=== PATIENT | female | born 1980 | race Hispanic/Latino ===

== ENCOUNTER 2017-11-18 22:41 | Day surgery (SDC) | payer SELFPAY ==
[2017-11-18 23:23] VITALS: BMI 22.9
--- NOTE | 2017-11-19 00:16 | PDOC.LDHP ---
Labor and Delivery H&P Chief complaint: contractions HPI: This is a 37 y/o @ 27.6 WGA who presents for contractions. The patient reports that her ctx started about a week ago and she has had runs of them on and off. She reports that they would last for about 3-4 hours and would be 10 minutes apart. She describes that today they have been worse so she decided to come in and get seen. The patient has been orally hydrating. She denies F/C, dysuria, but reports that her urine has been darker in color. She denies vaginal bleeding or discharge and denies loss of fluids. She reports good movement. Current gestational age (weeks): 27 (6) Due date: 02/12/18 Grav: 6 Para: 4 OB History Details: 4 term vaginal deliveries and one 1st trimester SAB. Current complications: other (Advanced maternal age) Abnormal US findings: Yes (per the patient: the baby has an "enlarged heart") Past Medical History: None Current medications: pre-clint vitamins Previous surgical history: appendectomy, cholecystectomy Social history: none - Physical Exam Vital signs reviewed and normal: yes General: NAD Heart: RRR Lungs: CTAB Abdomen: other (suprapubic and lower abdominal tenderness) Extremeties: no edema FHT: category 1, variability present Biola contractions every: 2-3 minutes - OB Labs Blood type: O RH: positive Antibody Screen: negative HIV: negative RPR: negative HEPSAg: negative GBS: unknown Rubella: immune - Assessment 37 y/o @ 27.6 WGA 1. Rule-out labor 2. Advanced maternal age - Plan -: Will observe the patient on L&D -NST -Cervical length, FFN if indeterminate -VP3 -Urinalysis -Orally hydrate Dispo pending results of the tests <Darlin Angulo - Last Filed: 11/19/17 00:13> <Nita Paniagua - Last Filed: 11/19/17 02:15> Allergies/Adverse Reactions: Allergies Allergy/AdvReac Type Severity Reaction Status Date / Time No Known Allergies Allergy Verified 11/18/17 23:16 Attending Addendum - Attending Addendum Date/Time: 11/19/17 0211 I personally evaluated the patient and discussed the management with Dr. Angulo on 3/19/18. I agree with the History, Examination, Assessment and Plan documented above with any addition or exceptions noted below. Patient presented with CTX, PTL workup initiated. Per patient report, fetus has an "enlarged heart" and she was seeing an M specialist in [place] later this week. On ultrasound intially performed for cervical length, fetus was noted to have significant hydrops, including ascites, hydroperitoneum, pericardial effusion, thickened skin, and thickened placenta. DOMINGO and cervical length normal. + cardiac activity and movement, with Cat I FHTs. Consulted M in [place], after discussion of case they requested transfer to [place] for management. Discussed at length with patient and family, including causes and prognosis. Transfer initiated by ambulance. <Nita Paniagua - Last Filed: 11/19/17 02:15>
[2017-11-19 00:46] LABS: Bilirubin Negative (Negative); Blood, Urine Trace (Negative); Clarity CLEAR (Clear); Glucose, Urine (Dipstick) Negative (Negative); Leukocyte Trace (Negative); Nitrite Negative (Negative); Protein, Urine (Dipstick) Negative (Neg-Trace); Specific Gravity, Urine 1.008 (1.002-1.036)
[2017-11-19 00:49] LABS: Pathc Cast-AUWi Flag 0.27 (0-2.49)
[2017-11-19 00:54] LABS: RBC/HPF None Seen HPF (0-3); WBC/HPF None Seen HPF (0-3)
[2017-11-19 00:55] LABS: Bacteria/HPF None Seen HPF (None Seen); Crystals/HPF None Seen HPF (Negative); Hyaline Casts/LPF NONE SEEN LPF (0-3 Hyaline); Renal Epithelial None Seen HPF (0-3); Transitional Epithelial NONE SEEN HPF (0-3); Yeast-All Forms None Seen HPF (None Seen)
--- NOTE | 2017-11-19 02:17 | PDOC.EVN ---
Event Note - Event Note Event Note: Ultrasound was done and revealed Hydrops. The fetus had pericardial effusion, ascites, as well as soft tissue edema. I spoke with an [employer]EL[employer] resident at [facility] in [place] who is working with the holistic nutritionist [facility] and they said that even though she is scheduled for an appointment for an ultrasound with them on Sunday, that they think she should be transferred to their hospital tonight. The accepting [facility] physician was Dr. Sameer Earl. Her contractions have gone away at this time and her cervical length was 4 cm. VP3 is still pending. -Ordered a TORCH panel -Will transfer by ambulance to [facility] - they already have her records from the Clinic <Darlin Angulo - Last Filed: 11/19/17 02:12> Attending Addendum - Attending Addendum Date/Time: 11/19/17 0231 I personally evaluated the patient and discussed the management with Dr. Angulo. I agree with the History, Examination, Assessment and Plan documented above with any addition or exceptions noted below. I agree with above documentation. <Nita Paniagua - Last Filed: 11/19/17 02:31>
--- NOTE | 2017-11-19 08:28 | ULT ---
PRELIMINARY REPORT/[facility]/EMERGENCY AFTER HOURS PROCEDURE: Addendum created by Janes Delong MD on 11/19/2017 3:10 AM Central Time ([place] & [place]) Cervix appears closed measuring up to 5.3 cm in length. Initial Report created on 11/19/2017 3:09 AM Central Time ([place] & [place]) EXAM: US Uterus, Limited US Doppler Velocimetry Umbil Artery CLINICAL HISTORY: 37 years old, female; Signs and symptoms; Lmp or gestational age (in weeks): 27wks; Other: Contractio n- eval cervical length; TECHNIQUE: Real-time ultrasound of the maternal uterus (limited) with image documentation. Real-time doppler velocimetry umbil artery with color Doppler flow and spectral waveform analys is. COMPARISON: No relevant prior studies available. FINDINGS: Single living intrauterine gestation in vertex presentation. heart rate: 169bpm. GA by US: 27w4 d. GA by LMP: 27w6d. DOMINGO: 16.7cm. Placenta is anterior. However placenta is markedly enlarged measuri ng up to 7.7 cm in thickness. There also appears to be scalp edema, skin thickening, asci meena and probable pleural effusion. Findings are concerning for hydrops fetalis. Umbilical artery Doppler assessment shows adequate diastolic flow with S/D ratio of 3.2. IMPRESSION: Single viable intrauterine . Findings concerning for hydrops fetalis as described above. THIS REPORT CONTAINS FINDINGS THAT MAY BE CRITICAL TO PATIENT CARE. The findings were verbally commun icated via telephone conference with Dr Paniagua at 2:45 AM CDT on 11/19/2017. The findings were acknow ledged and understood. Thank you for allowing us to participate in the care of your patient. Dictated and Authenticated by: Janes Delong MD 11/19/2017 3:09 AM Central Time ([place] & More) FINAL REPORT EMERGENCY AFTER HOURS OB ULTRASOUND: Date: 11/19/17 HISTORY: Positive with intrauterine contractions. Evaluate for cervical length. FINDINGS: There is a single intrauterine gestation in cephalic presentation. Cardiac Doppler does demonstrate f etal heart tones with heart rate of 169 beats/minute. The placenta is located anteriorly withou t evidence of placenta previa. The cervix is prominent in size. There is a normal amount of amniotic fluid with an amniotic fluid index of 16.7 cm. The cervical length measures between 4.7 cm and 5.3 cm based on transabdominal measurements. Measurements: BPD: 6.94 cm, 27 weeks/6 days HC: 25.8 cm, 28 weeks FL: 5.01 cm, 27 weeks Estimated gestational age by ultrasound is 27 weeks/4 days with VALARIE on 02/14/18. Gestational age by l ast menstrual period is 27 weeks/6 days. There is evidence of subcutaneous edema involving the scalp with associated skin thickening. Th ere is also subcutaneous edema involving the chest and abdomen with associated mild skin thickening a s well. There is evidence of intraperitoneal free fluid and findings likely related to bi lateral pleural effusions. Four chamber heart and bilateral kidneys demonstrate a normal sonographic appearance. However, the fe max anatomical structures were not adequately evaluated on this exam. An umbilical artery Doppler evaluation with spectral analysis and color flow evaluation demonstrates peak systolic velocity of 35.7 cm/second with end-diastolic velocity of 11.3 cm/second, and systolic to diastolic ratio of 3.16. IMPRESSION: 1. Evidence concerning for hydrops. 2. Single intrauterine gestation in cephalic presentation with heart tones documented. 3. Cervical length measures between 4.7 cm and 5.3 cm. 4. Amniotic fluid index is 16.7 cm. Findings are in agreement with the preliminary report by Paul. The above findings were noted to be discussed with Dr. Paniagua at 0245 hours on 11/19/17 by Paul. POS: [facility]
== END 2017-11-19 02:40 | disposition short-term general hospital (02) ==
LOC: L&D/OP 22:41
PROVIDERS: ATTEND Family Medicine
DX: O47.02 False labor before 37 completed weeks of gestation, second trimester (principal); O09.522 Supervision of elderly multigravida, second trimester; Z3A.27 27 weeks gestation of pregnancy; Z79.899 Other long term (current) drug therapy
CPT/HCPCS: 76815; 81001; 87480; 87510; 87660; 99283

== ENCOUNTER 2017-11-22 12:27 | Day surgery (SDC) | payer SELFPAY ==
[2017-11-22 13:07] VITALS: BP 152/77; TEMP 99.3; BMI 24.0
[2017-11-22] MEDS ORDERED: Betamet Acet/Betamet Na Ph 30 MG/5 ML VIAL IM SCH (14:00)
[2017-11-22 14:01] LABS: Bilirubin Negative (Negative); Blood, Urine Small (Negative); Clarity CLEAR (Clear); Glucose, Urine (Dipstick) Negative (Negative); Leukocyte Negative (Negative); Nitrite Negative (Negative); Protein, Urine (Dipstick) 30 mg/dL (Neg-Trace); Specific Gravity, Urine 1.007 (1.002-1.036); pH, Urine 6.5 (5.0-9.0)
[2017-11-22 14:06] LABS: Bacteria/HPF None Seen HPF (None Seen); Hyaline Casts/LPF 0-3 HYALINE CAST LPF (0-3 Hyaline); Pathc Cast-AUWi Flag 0.29 (0-2.49); RBC/HPF 0-3 HPF (0-3); Squamous Epithelial None Seen HPF (0-3); WBC/HPF 0-3 HPF (0-3)
[2017-11-22 14:28] LABS: #Basophils 0.1 thou/uL (0.0-0.2); #Eosinphils 0.1 thou/uL (0.0-0.7); #Lymphocytes 2.7 thou/uL (1.20-3.40); #Neutrophils 12.8 thou/uL (1.40-6.50); %Basophils 0.3 % (0.0-1.0); %Eosinophils 0.5 % (0.0-10.0); %Lymphocytes 16.1 % (21.0-51.0); %Monocytes 6.1 % (0.0-10.0); Hemoglobin 9.1 g/dL (12.0-16.0); Mean Corpuscular HGB CONC 34.6 g/dL (32.0-36.0); Mean Corpuscular Hemoglobin 31.5 pg (27.0-31.0); Mean Corpuscular Volume 91.2 fl (81.0-99.0); Mean Platelet Volume 8.5 fL (7.4-10.4); Platelet Count 137 thou/uL (130-400); RBC Distribution Width 12.6 % (11.5-14.5); Red Blood Cell (RBC) Count 2.89 mill/uL (4.20-5.40); White Blood Cell (WBC) Count 16.6 thou/uL (4.8-10.8)
[2017-11-22] MEDS ORDERED: Furosemide 20 MG/2 ML VIAL SLOW IVP SCH (14:30)
[2017-11-22 14:40] LABS: CO2 Tension 29.7 mmHg (35.0-45.0); pH, Arterial 7.45 (7.35-7.45)
[2017-11-22 14:41] LABS: ALV-art Gradient 74.515 (0-20); Actual Bicarbonate (HCO3a) 20.2 mEq/L (22-26); Base Excess (BEa) -3.1 mEq/L (0 (+/-) 2.5); Calcium, Ionized 1.2 mmol/L (1.12-1.30); Hematocrit-ABG 27.3 % (36.0-47.0); Hemoglobin (Hb) 8.9 g/dL (12.0-16.0); Puncture Site LRA
[2017-11-22] MEDS ORDERED: Furosemide 100 MG/10 ML VIAL ONE (14:45)
[2017-11-22 14:49] LABS: ALT (SGPT) 36 U/L (8-55); AST (SGOT) 88 U/L (5-34); Alkaline Phosphatase 135 U/L (40-150); Anion Gap 13 mmol/L (10-20); BUN (Urea Nitrogen) 11 mg/dL (7.0-18.7); Bilirubin, Total 1.1 mg/dL (0.2-1.2); Calc. Creatinine Clearance 123 mL/min (70-130); Calcium 8.6 mg/dL (7.8-10.44); Carbon Dioxide 20 mmol/L (22-29); Chloride 109 mmol/L (98-107); Estimated GFR-MDRD Greater than 90; Globulin 3.2 g/dL (2.4-3.5); Glucose 96 mg/dL (70-105); Potassium 3.8 mmol/L (3.5-5.1); Protein, Total 6.2 g/dL (6.0-8.3); Sodium 138 mmol/L (136-145)
--- NOTE | 2017-11-22 15:20 | RAD ---
PORTABLE UPRIGHT FRONTAL CHEST: Date: 11/22/17 COMPARISON: None. HISTORY: Shortness of breath. FINDINGS: There is no pneumothorax. There is air space disease in the perihilar regions and both lung bases wit h air bronchogram formation suggesting partial consolidation of bilateral lower lobes. Probable small bilateral pleural effusions are noted. IMPRESSION: Bibasilar air space disease with small bilateral pleural effusions suggest pulmonary edema or infecti ous pneumonitis/aspiration. Follow-up imaging following treatment advised. POS: [facility]
--- NOTE | 2017-11-22 15:49 | ULT ---
OB ULTRASOUND 11/22/17 HISTORY: Patient with hydrops. Multiple longitudinal and transverse images of an intrauterine was obtained using a multihe rtz curvilinear transducer. Real time, color flow, and spectral waveform doppler analysis is used to evaluate the fetus. Images demonstrate a viable intrauterine with the fetus in a transverse presentation. The placenta is anterior. The placenta is grade II. Amniotic fluid index measures 22.4 cm. There continues to be soft tissue edema involving the scalp, chest and abdominal wall. Some ascites a nd pleural effusions also visualized. Cardiac activity measures 157 beats per minute. A three vessel cord is seen. Four chamber heart is visualized. Cord insertion and cervical spine are grossly unremar kable. BIOMETRICS: Biparietal diameter 69 mm 27 weeks, 5 days Head circumference 257 mm 28 weeks, 0 days Abdominal circumference 272 mm 31 weeks, 3 days Femur length 50 mm 26 weeks, 6 days IMPRESSION: Findings compatible with hydrops and polyhydramnios. Cardiac activity is visualized. POS: [facility]
--- NOTE | 2017-11-22 15:51 | PRG ---
DATE OF SERVICE: 11/22/2017 OB ER ENCOUNTER PRIMARY OB: Clinic. HISTORY OF PRESENT ILLNESS: The patient is a 37-year-old female with an intrauterine at 28 weeks and 2 days who is presenting to Labor and Delivery with progressive shortness of breath from yesterday afternoon and chest pain. The patient also reports abdominal pains. She was recently diagnosed with nonimmune hydrops and had a consultation several days ago at [facility] in [place] demonstrating edema in the skin and scalp, intraperitoneal fluid and bilateral pleural effusions. The patient denies any recent illness, fever or sick contacts. She denies any medical history of significance or any medical problems prior to this. She says it hurts to breathe that it hurts her back and her chest. PAST MEDICAL HISTORY: Negative. PAST SURGICAL HISTORY: Appendectomy, cholecystectomy. ALLERGIES: No known drug allergies. SOCIAL HISTORY: Denies drug, alcohol or tobacco use. OB LABS: Blood type is O positive, negative antibody screen, RPR is nonreactive. Rubella is immune, HIV nonreactive, hepatitis B surface antigen nonreactive. REVIEW OF SYSTEMS: Patient denies illness, fever, fall, headache. She does report the chest pain and shortness of breath per HPI. Denies nausea, vomiting. Denies diarrhea. Reports constipation. Denies any new rashes. Reports back pain, hip pain and overall muscle weakness. Denies vaginal bleeding or leakage of fluid or urinary symptoms. PHYSICAL EXAMINATION: VITAL SIGNS: Blood pressure 152/77, heart rate of 78, respiratory rate of 28, temperature 99.3. Patient on initial presentation was 91% on room air and is 93 -97% on 2 liters nasal cannula. GENERAL: She appears to be distressed with shortness of breath. HEART: Regular rate and rhythm. LUNGS: Clear, a little diminished with no crackles. There are rhonchi in the left side. ABDOMEN: Gravid with some mild tenderness with contractions. EXTREMITIES: Bilateral edema in her lower extremities. No erythema/tender to palpation. BREASTS: Bilaterally are firm. GENITOURINARY: Exam has been deferred. heart tracing shows baseline in the 150s with moderate long-term variability. Tocometer shows contractions with irritability, not at all felt by the patient. LABORATORY DATA: A UA shows 1+ proteinuria, no white blood cells, no bacteria, no nitrites. CBC has a white count of 16, hemoglobin 9 which is a point down from just a few weeks ago, hematocrit of 26, platelets of 137. Sodium 138, potassium 3.8, bicarbonate 20, BUN 11, creatinine 0.6, AST of 88. ABG shows bicarbonate of 20, pH of 7.4, base excess of -3, O2 content 12.1, pO2 of 88, pCO2 of 29.7. IMAGING: Chest x-ray on the list and line reports some partial consolidation and pleural effusions, no pneumothorax. Of note, there are reports that the patient received betamethasone x2 at her previous admission at [facility]. ASSESSMENT AND PLAN: The patient is a 37-year-old female presenting with acute onset shortness of breath, hypertension, proteinuria, tachypnea and pulmonary edema in the presence of nonimmune hydrops. I have concerns of the patient developing Mirror syndrome, though she may also be experiencing preeclampsia or some infectious process. Given the overall picture, I have contacted Dr. Jenkins at [facility] to transfer her for a higher level of care in the event that this baby is delivered early. Dr. Jenkins and his team have accepted this patient for transfer. We will be giving her 20 mg of Lasix IV to assist with fluid overload. Intention was to give her 2 grams of Rocephin in the event that there is an infectious process occurring but pt was transferred before the abx were given. Patient upon transfer can be reevaluated by the accepting team for reevaluation. I appreciate their help. DEEPTHI
[2017-11-22] MEDS ORDERED: cefTRIAXone\\ROCEPHIN 2 GM in Sodium Chloride 0.9% 100 ML IVPB SCH (16:00)
--- NOTE | 2017-11-24 18:35 | EKG ---
Test Reason : Blood Pressure : / mmHG Vent. Rate : 071 BPM Atrial Rate : 071 BPM P-R Int : 152 ms QRS Dur : 082 ms QT Int : 376 ms P-R-T Axes : 049 050 039 degrees QTc Int : 408 ms Normal sinus rhythm Normal ECG No previous ECGs available Confirmed by MARYELLEN LUEVANO, DR. Mckeon ([id number]) on 11/24/2017 6:35:36 PM Referred By: ROSE Confirmed By:DR. Linda BOJORQUEZ MD
== END 2017-11-22 15:10 | disposition short-term general hospital (02) ==
LOC: L&D/OP 12:27
PROVIDERS: ATTEND Obstetrics & Gynecology
DX: O36.23X0 Maternal care for hydrops fetalis, third trimester, not applicable or unspecified (principal); O99.89 Other specified diseases and conditions complicating pregnancy, childbirth and the puerperium; R07.9 Chest pain, unspecified; R10.9 Unspecified abdominal pain; Z3A.28 28 weeks gestation of pregnancy
CPT/HCPCS: 36415; 51701; 51702; 71045; 76805; 80053; 81003; 81015; 82805; 85025; 93005; 93010; 99285; J0696; J0702; J1940; J7050